=== PATIENT | female | born 1970 | race African-American/Black ===

== ENCOUNTER → 2024-06-23 | Day surgery (SDC) | payer OTHER ==
[~2024-06-23] MED LIST: ACETAMINOPHEN 1000 MG/100 ML 100 ML IV ONE; AMLOD-VALSA-HC1 EAC4 PO; ATORVASTATIN CA20 MG PO; CLONIDINE HCL0.1 MG PO; DEXAMETHASONE SOD PHOS INJ 4 MG/ML SDV ONE; ESMOLOL HCL 100MG/10ML 10 MG/ML VIAL ONE; FENTANYL CITRATE/PF 100MCG/2 ML INJ ONE; FLONASE ALLERG9.9 ML INH; LABETALOL HCL 20 ML ONE; LIDOCAINE 1% W/EPINEPHRINE 20 ML VIAL ONE; LIDOCAINE HCL 2% LOCAL INJ 5 ML SDV VIAL INJ ONE; MIDAZOLAM HCL 2 MG/2 ML VIAL ONE; ONDANSETRON HCL INJ 2MG/ML 2ML 2 MG/ML VIAL ONE; PANTOPRAZOLE SO40 MG PO; PROPOFOL IV EMULSION 10 MG/ML 20 ML VIAL ONE; ROCURONIUM BROMIDE 0 ML IV ONE; ROCURONIUM BROMIDE 1 ML IV ONE; SUCRALFATE1 GM PO; SUGAMMADEX SODIUM 200 MG/2 ML VIAL IV ONE
[2024-06-23] MEDS: LACTATED RINGER'S 1,000 ML ONE (13:21)
[2024-06-23] MEDS: FENTANYL CITRATE/PF 100MCG/2 ML INJ ONE (14:47)
[2024-06-23] MEDS: HYDRALAZINE HCL 20 MG/ML VIAL ONE (15:05)
[2024-06-23 16:00] VITALS: BP 170/86; PULSE 71; RESP 18; O2SAT 95
== END | disposition home or self-care (01) ==
LOC: OR 09:25
PROVIDERS: ATTEND Otolaryngology Otolaryngology/Facial Plastic Surgery
DX: E04.9 Nontoxic goiter, unspecified (principal); I10 Essential (primary) hypertension; E66.01 Morbid (severe) obesity due to excess calories; K21.9 Gastro-esophageal reflux disease without esophagitis; Z79.899 Other long term (current) drug therapy; Z87.891 Personal history of nicotine dependence
CPT/HCPCS: 60220; 88307; 93005; J0131; J0360; J1100; J2003; J2405; J2704; J3010; J3490; J7121; J2250; J2470